=== PATIENT | male | born 1975 | race Caucasian/White ===

== ENCOUNTER 2019-05-30 17:55 | Inpatient (IN) | payer SELFPAY ==
[~2019-05-30] VITALS: Ht 182.9 cm; Wt 90.1 kg
[2019-05-30] MEDS ORDERED: ONDANSETRON HCL 4 MG/2 ML VIAL ONE ×2 (18:19→21:42)
[2019-05-30 18:21] LABS: BASOPHILS % (AUTO) 0.1 % (0.0-5.0); EOSINOPHILS % (AUTO) 0.1 % (0.0-8.0); HEMATOCRIT 45.8 % (42-54); LYMPHOCYTES % (AUTO) 8.2 % (21.0-51.0); MEAN CORPUSCULAR HGB CONC 34.7 g/dL (32.0-36.0); MEAN CORPUSCULAR VOLUME 92.2 fL (79-99); MONOCYTES % (AUTO) 5.5 % (3.0-13.0); NEUTROPHILS % (AUTO) 86.1 % (40.0-77.0); PLATELET COUNT (AUTO) 205 K/uL (130-400); RED BLOOD CELL COUNT(AUTO) 4.97 MIL/uL (4.50-6.20); RED CELL DISTRIBUTION WIDTH 12.3 % (11.0-15.5); WHITE BLOOD COUNT (AUTO) 15.9 K/uL (4.8-10.8)
[2019-05-30 18:43] LABS: CREATININE 1.1 mg/dL (0.5-1.5); INR 0.94 (0.85-1.15); PARTIAL THROMBOPLASTIN TIME 27.2 SEC (26.3-35.5); PROTHROMBIN TIME 9.9 SEC (9.6-11.6)
[2019-05-30 18:47] LABS: ALBUMIN 4.2 g/dL (3.5-5.0); BILIRUBIN,TOTAL 0.7 mg/dL (0.2-1.0); TOTAL PROTEIN, SERUM 7.7 g/dL (6.0-8.3)
[2019-05-30] MEDS ORDERED: SODIUM CHLORIDE 0.9% 1000ML 1,000 ML IV ONE (20:04)
[2019-05-30] MEDS ORDERED: KETOROLAC TROMETHAMINE 30MG/ML ONE (20:04)
[2019-05-30 20:22] LABS: APPEARANCE,URINE Clear (CLEAR); BILIRUBIN,URINE Negative (NEGATIVE); COLOR,URINE Yellow (YELLOW); GLUCOSE, URINE (UA) 500 mg/dL (NEGATIVE); KETONES,URINE 40 mg/dL (NEGATIVE); LEUKOCYTE ESTERASE ,URINE Negative (NEGATIVE); NITRATE,URINE Negative (NEGATIVE); OCCULT BLOOD,URINE Trace (NEGATIVE); PROTEIN,URINE Negative (NEGATIVE); UROBILINOGEN,URINE 0.2 mg/dL (0.2-1.0)
[2019-05-30 20:46] LABS: BACTERIA,URINE Rare /HPF (None Seen); RBC,URINE 0-1 /HPF (0-1); SQUAMOUS EPITHELIAL CELL,UR Rare /HPF (0-2); WBC,URINE 0-1 /HPF (0-1)
[2019-05-30] MEDS ORDERED: MORPHINE SULFATE 2 MG/ML 1ML SYG ONE (21:42)
[2019-05-30] MEDS ORDERED: ZOSYN 3.375GM+NS 50ML 50 ML IV ONE (21:42)
[2019-05-30] MEDS ORDERED: LACTATED RINGERS 1000ML 1,000 ML IV ONE (21:43)
[2019-05-30] MEDS ORDERED: MORPHINE SULFATE 2 MG/ML 1ML SYG IVP PRN (22:00)
[2019-05-30] MEDS ORDERED: ONDANSETRON HCL 4 MG/2 ML VIAL IVP PRN (22:00)
[2019-05-30] MEDS ORDERED: LACTATED RINGERS 1000ML 1,000 ML IV SCH (22:00)
[2019-05-31] VITALS (27 sets, daily range): BP systolic 94–136; BP diastolic 43–76
[2019-05-31] MEDS: ZOSYN 3.375GM+NS 50ML 50 ML IV SCH ×3 (06:06→21:32)
[2019-05-31] MEDS: KETOROLAC TROMETHAMINE 30MG/ML IV PRN ×3 (06:06→21:42)
--- NOTE | 2019-05-31 08:44 | NUR ---
DR QUINTEROS CAME IN TO EXPLAINED SCHEDULED APPENDECTOMY TO THE PATIENT. CONSENT WAS OBTAINED AT THIS TIME AND THE OR PREP NURSE IS ALREADY HERE TO TAKE THE PATIENT TO OR. FAMILY MEMBER WENT DOWN WITH THE PATIENT. LEFT THE UNIT VIA BED.
[2019-05-31] MEDS ORDERED: SUCCINYLCHOLINE 200MG/10ML SYR ONE (09:30)
[2019-05-31] MEDS ORDERED: DEXAMETHASONE SOD PHOSPHATE 10MG/ML 1ML VIAL ONE (09:30)
[2019-05-31] MEDS ORDERED: LIDOCAINE PF 2% 5ML ABBOJECT ONE (09:30)
[2019-05-31] MEDS ORDERED: ONDANSETRON HCL 4 MG/2 ML VIAL ONE (09:30)
[2019-05-31] MEDS ORDERED: NEOSTIGMINE 5MG/5ML SYR IV ONE (09:31)
[2019-05-31] MEDS ORDERED: MIDAZOLAM HCL 1 MG/ML 2ML VIAL ONE (09:31)
[2019-05-31] MEDS ORDERED: PROPOFOL 10 MG/ML 20ML VIAL IV ONE (09:31)
[2019-05-31] MEDS ORDERED: ROCURONIUM 10MG/1ML SYR 10 MG/ML ML ONE (09:31)
[2019-05-31] MEDS ORDERED: FENTANYL CITRATE PF 50 MCG/1 ML 2ML VIAL ONE ×2 (09:31→09:42)
[2019-05-31] MEDS ORDERED: GLYCOPYRROLATE 1 MG/5 ML SYRINGE ONE (09:31)
[2019-05-31] MEDS ORDERED: MEPERIDINE-PF 50 MG/ML SYG ONE (10:42)
[2019-05-31] MEDS ORDERED: ACETAMINOPHEN-CODEINE 300/30MG TAB PO PRN (10:45)
[2019-05-31] MEDS ORDERED: MEPERIDINE-PF 25 MG/ML SYG ONE ×2 (11:17→11:28)
--- NOTE | 2019-05-31 12:09 | NUR ---
RETURNED FROM PACU ALERT AND AWAKE WITHOUT DISTRESS ON ROOM AIR 96% O2 SAT. RLQ WITH SMALL DRY GAUZE DRESSING NO BLEEDING. BOWEL SOUNDS ARE AUDIBLE, ABDOMEN IS SOFT AND TENDER TO PALPATION, VOICED SORENESS AND NO PAIN. POST-OP TEACHING DONE WITH RETURNED DEMONSTRATION AND UNDERSTANDING ON THE INCENTIVE SPIROMETRY 1500MMHG. SCD'S APPLIED. VITAL SIGNS ARE STABLE. WILL CONTINUE TO MONITOR.
[2019-05-31] MEDS: LACTATED RINGERS 1000ML 1,000 ML IV SCH (13:00)
--- NOTE | 2019-05-31 16:28 | NUR ---
DCP CM met with pt discussed dc plans. Pt is independent lives at home with spouse. Denies any equipments/services. Pt feels safe to go back home, still works and drives, spouse able to assist with transportation and needs. Pt is a self pay, [facility] assisting, given [employer] packet. DC plan to home once stable. CM to cont to follow up. Addendum: 05/31/19 at 1629 by ALEX NUÑEZ LVN CM Amended: Links added.
[2019-06-01 03:05] VITALS: BP 119/67
[2019-06-01] MEDS: LACTATED RINGERS 1000ML 1,000 ML IV SCH (03:29)
[2019-06-01] MEDS: KETOROLAC TROMETHAMINE 30MG/ML IV PRN (03:33)
[2019-06-01] MEDS: ZOSYN 3.375GM+NS 50ML 50 ML IV SCH (05:10)
[2019-06-01 08:00] VITALS: BP 111/59
[2019-06-01] MEDS ORDERED: ACET1TAB12 PO (10:36)
[2019-06-01 12:00] VITALS: BP 118/59
--- NOTE | 2019-06-01 12:45 | NUR ---
DISCHARGE INSTRUCTIONS WERE PROVIDED TO THE PATIENT WITH HIS PRESCRIPTION AND FOLLOW-UP APPOINTMENT AND HE WAS MADE AWARE OF THE ACTIVITY RESTRICTIONS AND HE VERBALIZED CLEAR UNDERSTANDING. LEFT THE UNIT IN STABLE CONDITION ASSISTED IN A WHEELCHAIR BY THE FLOOR BUTCHER ASSISTANT TO THE CARE OF HIS SPOUSE. IV ACCESS WAS REMOVED WITHOUT PROBLEM PRIOR TO DISCHARGE.
== END 2019-06-01 12:40 | disposition home or self-care (01) | DRG 343 ==
LOC: EDH 17:55 → EDHIP 17:56 → 3CH 23:55
PROVIDERS: ADMIT Surgery; ATTEND Surgery
PROC: 0DTJ0ZZ Resection of Appendix, Open Approach (ICD-10-PCS; principal; 2019-05-31 09:28)
DX: K35.891 Other acute appendicitis without perforation, with gangrene (principal)
CPT/HCPCS: 36415; 71045; 74177; 80053; 81001; 82150; 82550; 83690; 84484; 85025; 85610; 85730; 88304; 93005; G0378; J0330; J1100; J1885; J2001; J2175; J2250; J2405; J2543; J2704; J2710; J3010; J3490; J7030; J7120